=== PATIENT | male | born 1990 | race Hispanic/Latino ===

== ENCOUNTER 2017-05-14 04:30 | Emergency (ER) | payer SELFPAY ==
[2017-05-14 04:46] VITALS: BP 132/78; PULSE 82; RESP 18; TEMP 99; O2SAT 97
--- NOTE | 2017-05-14 05:37 | ED PDOC ---
HPI: Headache Time Seen by Provider: 05/14/17 04:39 Chief Complaint (Nursing): Headache Chief Complaint (Provider): Headache History Per: Patient History/Exam Limitations: no limitations Onset/Duration Of Symptoms: Days (x4) Current Symptoms Are (Timing): Still Present Additional Complaint(s): 27-year-old male presents to the emergency room for 3-4 days of frontal headache with associated ear clogged sensation and stuffy nose. Reports he has been taking Advil without relief. No fevers or neck stiffness. Headache is described as dull and gradual, non thunderclap. PMD: Provider TBD Past Medical History Reviewed: Historical Data, Nursing Documentation, Vital Signs Vital Signs: Last Vital Signs Temp 99 F 05/14/17 04:44 Pulse 82 05/14/17 04:44 Resp 18 05/14/17 04:44 BP 132/78 05/14/17 04:44 Pulse Ox 97 05/14/17 04:44 - Medical History PMH: No Chronic Diseases - Family History Family History: States: Unknown Family Hx - Home Medications Home Medications: Ambulatory Orders Medication Instructions Recorded Hydroxyzine Pamoate [Vistaril] 25 mg PO TID PRN #30 cap 02/23/15 Permethrin [Elimite] 1 appl TP ONCE #1 packet 02/23/15 Carbamide Peroxide [Debrox Ear 5 - 10 drop AD QID #1 bottle 05/14/17 Drops] - Allergies Allergies/Adverse Reactions: Allergies Allergy/AdvReac Type Severity Reaction Status Date / Time No Known Allergies Allergy Verified 02/23/15 21:18 Review of Systems ROS Statement: Except As Marked, All Systems Reviewed And Found Negative Constitutional: Negative for: Fever ENT: Positive for: Nose Congestion, Other (ear clogged sensation) Musculoskeletal: Negative for: Neck Pain (or stiffness) Neurological: Positive for: Headache (frontal) Physical Exam - Reviewed Nursing Documentation Reviewed: Yes Vital Signs Reviewed: Yes - Physical Exam Appears: Positive for: Non-toxic, No Acute Distress Head Exam: Positive for: ATRAUMATIC, NORMAL INSPECTION, NORMOCEPHALIC Skin: Positive for: Normal Color, Warm, Dry Eye Exam: Positive for: EOMI, Normal appearance, PERRL ENT: Positive for: Pharynx Is (clear), Sinus Pain/Drainage (Tenderness to maxillary sinus), Nasal Congestion, Other (Ears: bilateral cerumen impaction) Neck: Positive for: Normal, Painless ROM, Supple Cardiovascular/Chest: Positive for: Regular Rate, Rhythm. Negative for: Murmur Respiratory: Positive for: Normal Breath Sounds. Negative for: Accessory Muscle Use, Respiratory Distress Gastrointestinal/Abdominal: Positive for: Normal Exam, Bowel Sounds, Soft. Negative for: Tenderness Extremity: Positive for: Normal ROM. Negative for: Pedal Edema, Deformity Neurologic/Psych: Positive for: Alert, Oriented. Negative for: Motor/Sensory Deficits - ECG O2 Sat by Pulse Oximetry: 97 (RA) Pulse Ox Interpretation: Normal Medical Decision Making Medical Decision Making: Initial Impression: Sinus congestion, Cerumen impaction Time: 5:00 Plan: Cerumen was debrided with ear wick, with complete resolution of symptoms afterwards. Patient is medically stable for discharge home. Provided with Rx for Debrox ear drops. Counseling was provided and all questions were answered regarding diagnosis and need for follow up with ENT, referral provided. There is agreement to discharge plan. Return precautions discussed. Scribe Attestation: Documented by Yola Wheatley, acting as a scribe for Sánchez Byers MD Provider Scribe Attestation: All medical record entries made by the Scribe were at my direction and personally dictated by me. I have reviewed the chart and agree that the record accurately reflects my personal performance of the history, physical exam, medical decision making, and the department course for this patient. I have also personally directed, reviewed, and agree with the discharge instructions and disposition. Disposition - Clinical Impression Clinical Impression: Sinus pressure, Cerumen impaction - Patient ED Disposition Is Patient to be Admitted: No Counseled Patient/Family Regarding: Diagnosis, Need For Followup, Rx Given - Disposition Referrals: Ajit Hanna MD [Staff Provider] - Disposition: Routine/Home Disposition Time: 05:06 Condition: STABLE Prescriptions: Carbamide Peroxide [Debrox Ear Drops] 5 - 10 drop AD QID #1 bottle Instructions: Cerumen Impaction (ED), Rhinosinusitis (ED) Forms: [facility] ([place]) - POA Present On Arrival: None
== END 2017-05-14 05:15 | disposition home or self-care (01) ==
LOC: H.ER 04:30
DX: H61.20 Impacted cerumen, unspecified ear (principal); J01.90 Acute sinusitis, unspecified